=== PATIENT | female | born 1940 | race Two or more races ===

== ENCOUNTER 2024-06-22 09:59 | Emergency (ER) | payer MEDICARE, SELFPAY ==
[2024-06-22 10:11] VITALS: BP 140/76; PULSE 90; RESP 18; TEMP 36.8; O2SAT 95
--- NOTE | 2024-06-22 10:13 | XR_ITS ---
Examination: CT cervical spine without contrast 2-D sagittal reconstructions 2-D coronal reconstructions 3-D reconstructions. Exam date and time:June 22, 2024 10:18 AM Indications: Patient fell out of bed today with injury to the neck, neck pain CTDI:vol (mGy) 829 DLP: (mGycm) 8 Technique: Multiple 2 mm axial sections of the cervical spine have been obtained. The coronal and sagittal reconstructions have been obtained. 3-D reconstructions have been obtained. Low dose protocols were performed. One or more of the following dose reduction techniques were used; automated exposure control, adjustment of the mA and/or KV according to patient size, use of iterative reconstruction technique. Findings: Axial sections demonstrate intact base of the skull. C1 exhibit satisfactory relationship to the odontoid. No acute cervical vertebral body fracture seen. Alignment posterior spinous processes satisfactory. Impression: No acute cervical fracture.
--- NOTE | 2024-06-22 10:13 | XR_ITS ---
Examination: CT brain head without contrast. 2-D sagittal coronal reconstructions Date and time of exam:June 22, 2024, 1018 hrs. Indications: Patient fell out of bed today with injury to the head, head pain CTDI: vol (mGy):46.7 DLP: (mGycm):959 Technique: Multiple CT axial sections of the brain have been obtained, 5 mm slice thickness. Contrast has not been administered. 2-D sagittal, coronal reconstructions have been obtained Low dose protocols were performed. One or more of the following dose reduction techniques were used; automated exposure control, adjustment of the mA and/or KV according to patient size, use of iterative reconstruction technique. Findings: No significant ventricular enlargement. Stable right cerebral hemiatrophy compared with May 13, 2022 Intra-axial or extra-axial hemorrhage density is not seen. No mass effect or midline shift Basal cisterns are not remarkable. Fourth ventricle is midline. Cranial vault intact. Impression: Negative for acute hemorrhage, mass effect or midline shift
--- NOTE | 2024-06-22 10:14 | PD.EDWOUND ---
ED Wound/Laceration-RME/HPI General Chief Complaint: Fall Stated Complaint: FELL HITTING BACK OF HEAD 30MIN AGO, LAC Time Seen by Provider: 06/22/24 10:04 Source: patient Arrival date/time: 06/22/24 09:59 83-year-old female with a history of hypertension presents to the emergency room with a chief complaint of a laceration to the center of his scalp after falling from the bed and hitting her head 1 hour ago Mode of arrival: ambulatory Limitations: no limitations Related Data Home Medications ?Medication ?Instructions ?Recorded ?Confirmed amlodipine 5 mg tablet (Norvasc) 5 mg PO QDAY #0 tabs 09/19/16 06/11/19 ergocalciferol (vitamin D2) 1,250 50,000 unit PO Q7D #0 caps 09/19/16 06/11/19 mcg (50,000 unit) capsule (Vitamin D2) meloxicam 15 mg tablet (Mobic) 15 mg PO HS #0 tabs 09/19/16 06/11/19 rivastigmine tartrate 3 mg capsule 3 mg PO BID ##0 09/19/16 06/11/19 valsartan 320 mg tablet (Diovan) 320 mg PO QDAY #0 tabs 09/19/16 06/11/19 vortioxetine 5 mg tablet 5 mg PO QDAY ##0 09/19/16 06/11/19 (Trintellix) ibandronate 150 mg tablet (Boniva) 150 mg PO QMONTH 06/11/19 06/11/19 Previous Rx's ?Medication ?Instructions ?Recorded docusate sodium 100 mg capsule 100 mg PO BID #40 caps 06/16/19 hydrocodone 5 mg-acetaminophen 325 1 tab PO Q6HR PRN Pain #15 tabs 06/16/19 mg tablet Allergies Allergy/AdvReac Type Severity Reaction Status Date / Time codeine Allergy Mild GI UPSET Verified 06/22/24 10:04 Penicillins Allergy Verified 06/22/24 10:04 Review of Systems Review of Systems Systems Reviewed: All systems reviewed, normal except as documented Constitutional Constitutional: Reports system reviewed and no additional complaints, except as documented, Denies fatigue, Denies fever(s), Denies headache(s) and Denies weakness Eyes Eyes: Reports system reviewed and no additional complaints, except as documented, Denies blurry vision and Denies change in vision ENT Ears, Nose, Mouth, and Throat: Reports system reviewed and no additional complaints, except as documented, Denies otalgia, Denies headache(s), Denies nasal congestion, Denies throat swelling and Denies vertigo Cardiovascular Cardiovascular: Reports system reviewed and no additional complaints, except as documented, Denies chest pain, Denies dyspnea and Denies dyspnea on exertion Respiratory Respiratory: Reports system reviewed and no additional complaints, except as documented, Denies chest congestion, Denies cough, Denies dyspnea, Denies dyspnea on exertion and Denies wheezing Gastrointestinal Gastrointestinal: Reports system reviewed and no additional complaints, except as documented, Denies abdominal pain, Denies cramping, Denies nausea and Denies vomiting Genitourinary Genitourinary: Reports system reviewed and no additional complaints, except as documented Musculoskeletal Musculoskeletal: Reports system reviewed and no additional complaints, except as documented and Denies back pain Integumentary/Breasts Skin/Breast: Reports system reviewed and no additional complaints, except as documented and Reports wounds Neurologic Neurologic: Reports system reviewed and no additional complaints, except as documented, Denies confusion, Denies headache(s), Denies lack of coordination, Denies vertigo and Denies weakness Psychiatric Psychiatric: Reports system reviewed and no additional complaints, except as documented, Denies anxiety, Denies confusion, Denies depression, Denies paranoia, Denies suicidal ideation and Denies tactile hallucinations Endocrine Endocrine: Reports system reviewed and no additional complaints, except as documented and Denies fatigue Hematologic/Lymphatic Hematologic/Lymphatic: Reports system reviewed and no additional complaints, except as documented and Denies lymphadenopathy Allergic/Immunologic Allergic/Immunologic: Reports system reviewed and no additional complaints, except as documented, Denies throat swelling, Denies urticaria and Denies wheezing Past Medical History Past Medical History NEUROLOGIC: Positive Cerebrovascular Accident; Negative Seizures CARDIAC: Positive Hypertension; Negative Cardiac Disorders or Congestive Heart Failure RESPIRATORY: Negative Chronic Obstructive Pulmonary Disease (COPD) or Asthma GENITOURINARY: Negative Renal Disease MUSCULOSKELETAL: Positive Arthritis ENDOCRINE: Negative Diabetes Mellitus Type 1 or Diabetes Mellitus Type 2 HEMATOLOGIC: Negative Sickle Cell Disease OTHER HISTORY: Positive Blood Transfusions; Negative Blood Transfusion Reaction or Anesthesia Reactions Social History SMOKING STATUS: Never smoker SUBSTANCE USE: does not use ED Exam General Limitations: Present no limitations General appearance: Present alert and in no apparent distress Head Head exam: Present atraumatic, normocephalic and normal inspection Expanded Head Exam Head exam physical: Present laceration; Absent abrasion, contusion, hematoma, raccoon eyes, Solano's sign, tenderness of temporal artery, CSF rhinorrhea or CSF otorrhea Head image:  1. 2 cm laceration to the center of her scalp. Eye Eye exam: Present normal appearance, PERRL and EOMI ENT ENT exam: Present normal exam, normal oropharynx and mucous membranes moist Neck Neck exam: Present normal inspection, full ROM and trachea midline Chest Chest inspection: Present normal inspection and symmetric chest wall rise Respiratory Respiratory exam: Present normal lung sounds bilaterally Cardiovascular Cardiovascular exam: Present regular rate, normal rhythm and normal heart sounds Abdominal Exam Abdominal exam: Present soft and normal bowel sounds Extremities Exam Extremities exam: Present normal inspection and full ROM Back Exam Back exam: Present normal inspection and full ROM Neurological Exam Neurological exam: Present alert, oriented X3 and CN II-XII intact Psychiatric Psychiatric exam: Present normal affect and normal mood Skin Skin exam: Present warm, dry, intact and normal color Course Quality Measures none Orders Category Date Time Status Stapler to Beside ONCE Care 06/22/24 10:13 Completed Wound Care X1 Care 06/22/24 10:[address] cervical spine wo con Stat Exams 06/22/24 10:[address] head/brain wo con Stat Exams 06/22/24 10:13 Completed Vital Signs Vital signs: Vital Signs Temperature 98.3 F 06/22/24 10:11 Pulse Rate 90 06/22/24 10:11 Respiratory Rate 18 06/22/24 10:11 Blood Pressure 140/76 H 06/22/24 10:11 Pulse Oximetry (%) 95 06/22/24 10:11 Oxygen Delivery Method Room Air 06/22/24 10:11 O2 saturation 95% within normal limits Procedures -ED Laceration Laceration 1: Site: scalp Size (cm): 2 Description: linear Depth: simple, single layer Local Anesthetic: lidocaine 1% Amount of anesthesia used (mL): 3 Pre-repair: wound explored Size (cm): other (Ernestina) Number of sutures: 2 Technique: simple, interrupted Wound / Laceration MDM Narrative MDM Narrative:: 83-year-old female with a history of hypertension presents to the emergency room with a chief complaint of a laceration to the center of his scalp after falling from the bed and hitting her head 1 hour ago Patient is hemodynamically stable and in no apparent distress. Physical examination shows a normal neurological exam. Pupils are PERRLA EOMs are intact the patient is a GCS of 15 she is alert and oriented x 3 the patient denies taking any blood thinners. There is a 2 cm laceration to the center of her scalp. The wound was closed and approximated using 2 ernestina. The wound was cleaned and irrigated. CT of the head and brain were negative for any acute findings. CT of the cervical neck was negative for any cervical neck fracture. Patient was discharged and educated to follow-up with primary care provider in the next 24 to 48 hours and return to the emergency room for any evidence of worsening signs or symptoms Patient data External records reviewed:: [facility] previous records Clinical information provided by:: patient Social determinants that could affect healthcare access:: none Patient has the following chronic illnesses:: Hypertension How is presenting disease/condition affected by chronic disease/condition?: uneffected by Evaluation data The following diagnostics were reviewed and interpreted by me:: lab results and radiology exam(s) Lab and/or radiology exams considered but not ordered:: Labs and radiology exams considered and ordered Interpretation Summary: CT of the head and brain-Findings: No significant ventricular enlargement. Stable right cerebral hemiatrophy compared with May 13, 2022 Intra-axial or extra-axial hemorrhage density is not seen. No mass effect or midline shift Basal cisterns are not remarkable. Fourth ventricle is midline. Cranial vault intact. Impression: Negative for acute hemorrhage, mass effect or midline shift CT cervical neck-Findings: Axial sections demonstrate intact base of the skull. C1 exhibit satisfactory relationship to the odontoid. No acute cervical vertebral body fracture seen. Alignment posterior spinous processes satisfactory. Impression: No acute cervical fracture. Medications / Prescriptions Medications or Prescriptions considered but not ordered:: No medication given Medication administrations:: No medication given Consultations Consultation(s) initiated? (list below): No Diagnosis Wound Differential Diagnosis: laceration, abrasion and other (Head injury) Most likely diagnosis given after review of the tests above:: Laceration Admission Indicated Admission indicated?: not indicated Admission Request Was there a request for admission?: No Disposition Plan Disposition Plan: Discharge Discharge Attestation Discharge Attestation: The patient and all family members were given an opportunity to ask questions and understood the discharge instructions. Discharge instructions specifically effects, indications for sooner follow up or return to the emergency department, and the expected course of current diagnosis. Patient condition: Stable Discharge Plan Plan Patient Disposition: HOME (Self Care) Discharge Disposition comment: Stable Prescriptions/Referrals Prescriptions/Med Rec: No Action meloxicam [Mobic] 15 MG tablet 15 mg PO HS Qty: 0 amlodipine [Norvasc] 5 MG tablet 5 mg PO QDAY Qty: 0 valsartan [Diovan] 320 MG tablet 320 mg PO QDAY Qty: 0 ergocalciferol (vitamin D2) [Vitamin D2] 50,000 UNIT capsule 50,000 unit PO Q7D Qty: 0 rivastigmine tartrate 3 mg Capsule 3 mg PO BID Qty: 0 Trintellix 5 MG tablet 5 mg PO QDAY Qty: 0 ibandronate [Boniva] 150 mg Tablet 150 mg PO QMONTH hydrocodone-acetaminophen 5-325 mg Tablet 1 tab PO Q6HR MDD 4 PRN (Reason: Pain) Qty: 15 0RF docusate sodium 100 mg Capsule 100 mg PO BID Qty: 40 0RF Referrals: Ranjan Zavala MD [Primary Care Provider] - In 1 week Problem List Clinical Impression: Laceration of scalp Patient/Caregiver Discharge Instructions Education Materials: ED Head Injury (Adult), ED Laceration Small or ... Additional Instructions: Please follow-up with your primary care provider in the next 24 to 48 hours. Your laceration was closed and approximated with ernestina. You can return to the emergency room in 7 to 10 days for staple removal. Please keep the area clean and dry for the next 24 hours and then you can clean it with soap and water. For any evidence of worsening signs or symptoms return to the emergency room immediately Print Language: Uzbek Stand Alone Forms: Magda Award Info., Patient Portal Info Letter PA/ARCHIVIST MILITARY HISTORY Supervising Physician PA/ARCHIVIST MILITARY HISTORY Supervising Physician: Dr. Buckley
== END 2024-06-22 11:38 | disposition home or self-care (01) ==
PROVIDERS: Emergency Provider Family Medicine; PCP Family Medicine
DX: S01.01XA Laceration without foreign body of scalp, initial encounter (principal); W06.XXXA Fall from bed, initial encounter
CPT/HCPCS: 12001; 70450; 72125; 99284

== ENCOUNTER → 2024-09-10 | Outpatient (CLI) | payer MEDICARE, SELFPAY ==
--- NOTE | 2024-09-10 13:30 | XR_ITS ---
Examination: MRI brain without intravenous contrast. Date and time of exam: September 10, 2024 1356 hours Comparison February 08, 2016 INDICATIONS: Increasing memory loss over the last year Technique: Multiple axial and sagittal images of the brain obtained. Siemens high-resolution 1.5 Muna short bore scanners utilized. Sagittal sections, T1-weighted, TR 500, TE 14, are performed. Axial sections proton-density and T2-weighted have been obtained. Inversion recovery axial images, TR 9, 260, TE 111, TI 2500. Diffusion weighted images, axial sections, TR 4800, TE 128, B value 1000 Axial sections, ADC map, TR 4800, TE 128 Findings: Enlargement of the sella turcica is not present. The optic chiasm and infundibular are not remarkable. Prepontine and interpeduncular cisterns are not enlarged. There is no localized enlargement of the medulla or amalia. Fourth ventricle and cerebellar tonsils appear normal in position. No subacute area of hemorrhage density is seen. Mass in the cerebellopontine angle region is not evident. Globes symmetrical. Orbital musculature including medial lateral rectus muscles do not exhibit abnormality. Diffusion-weighted images demonstrate no focus of restricted diffusion. Increased white matter signal prominent Mass effect upon the ventricular system is not identified. 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
== END | disposition home or self-care (01) ==
LOC: SMRI 13:10
PROVIDERS: PCP Family Medicine; Referring Provider Family Medicine; Visit Provider Family Medicine
DX: R90.82 White matter disease, unspecified (principal)
CPT/HCPCS: 70551